=== PATIENT | female | born 1970 | race Caucasian/White ===

== ENCOUNTER 2017-07-18 18:20 | Observation (INO) ==
[2017-07-18] MEDS ORDERED: ASPIRIN 325 MG TABLET PO STA (19:19)
[2017-07-18] MEDS ORDERED: ALUM/MAG/SIMETH/LIDO VISC 1:1 30 ML BOTTLE PO STA (19:19)
[2017-07-18] MEDS ORDERED: NITROGLYCERIN 2% OINT 1 INCH/GM PACK TOP STA (19:19)
[2017-07-18] MEDS ORDERED: ONDANSETRON 4 MG/2 ML VIAL IV STA (19:19)
[2017-07-18] MEDS ORDERED: METOPROLOL TARTRATE 5 MG/5 ML VIAL IV STA (19:19)
[2017-07-18] MEDS ORDERED: MORPHINE 2 MG/1 ML SYRINGE IV STA (19:19)
[2017-07-18] MEDS ORDERED: SODIUM CHLORIDE 0.9% 500 ML IV STA (19:19)
--- NOTE | 2017-07-18 19:21 | Emergency Department Note ---
Lizzy Holbrook Gwan, am scribing for, and in the presence of, Ever Joyce MD 19 :17. Maria Del Carmen Holbrook Charles R, MD, personally performed the services described in this documentation, ascribed by Mark Ball in my presence, and it is both accurate and complete . Arrival - Arrival Chief Complaint: Chest Pain Stated Complaint: chest tight, heart racing ED Nursing Triage Note: c/o mid-sternal chest pain radiating into left shoulder blade onset last pm. Describes as tightness. +palpitations. +shortness of breath. +nausea. Mode of Arrival: Ambulatory Limitations: No Limitations Source: Patient, Old Records Reviewed, RN Notes Reviewed Time Seen by Provider: 07/18/17 18:58 - History of Present Illness HPI Narrative: Patient is a 46 y/o female who presents to the ED with a c/o mid-sternal chest pain with an onset yesterday. Patient describes her pain as a tightness that radiates to her left shoulder blade. She continued to note that she has also had SOB and nausea. Patient stated that her discomfort progressively got worse during the day prompting her visit to the ED for further evaluation. 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 She then said that she has no been compliant medication due to no health insurance. Patient denies having a heart cath or following up with a Hall Cleaner. During exam, patient appeared anxious. No other problems/ complaints reported in ED. Onset (ago): day(s) Consistency: constant Severity: moderate Date of Last Menstrual Period: hyst Allergies/Adverse Reactions: Allergies Allergy/AdvReac Type Severity Reaction Status Date / Time No Known Allergies Allergy Verified 07/18/17 18:28 Home Medications: Home Medications Medication Instructions Recorded Confirmed Type Baclofen Tab [Lioresal] 10 mg PO BID 07/18/17 07/18/17 History Gabapentin Cap/Tab [Neurontin 300 mg PO BID 07/18/17 07/18/17 History Cap/Tab] Review of System - Review of System 12 point system: reviewed and no additional remarkable complaints except as stated - Review of System Respiratory: Present: as per HPI, other (shortness of ) Cardiovascular: Present: as per HPI, chest pain, palpitations Medical,Surgical,& Family Hx - Medical History Cardio: History of: CA Hematology: History of: Anemia - Surgical History Reproductive Surgeries: Surgical HX of;: Hysterectomy - Social History Smoking Status: Never smoker Frequency of Alcohol Use: None Type of Drug Use: None Exam Vital Signs: Vital Signs Temperature 97.7 F 07/18/17 18:22 Pulse Rate 135 H 07/18/17 19:00 Respiratory Rate 22 07/18/17 19:00 Blood Pressure 150/90 07/18/17 19:00 O2 Sat by Pulse Oximetry 99 07/18/17 19:00 - General General appearance: alert, anxious - Head Head exam: Present: atraumatic, normocephalic - Eye Eye exam: Present: PERRL, EOMI, other (Patient had pale conjunctiva.) - ENT ENT exam: Present: normal oropharynx, mucous membranes moist, TM's normal bilaterally, normal external ear exam - Neck Neck exam: Present: full ROM, trachea midline. Absent: tenderness - Chest Chest inspection: Present: symmetric chest wall rise. Absent: tenderness - Respiratory Respiratory exam: Present: normal lung sounds bilaterally. Absent: respiratory distress - Cardiovascular Cardiovascular exam: Present: normal rhythm, tachycardia - Abdominal Exam Abdominal exam: Present: soft, normal bowel sounds. Absent: distention, tenderness - Extremities Exam Extremities exam: Present: full ROM. Absent: tenderness - Back Exam Back exam: Present: full ROM. Absent: tenderness - Neurological Exam Neurological exam: Present: alert, oriented X3, CN II-XII intact. Absent: motor sensory deficit - Psychiatric Psychiatric exam: Present: normal affect, normal mood - Skin Skin exam: Present: warm, dry, intact, normal color Course - Consultations Consultation #1: Hospitalist will admit patient Time: 21:06 Results - Labs CBC & BMP: 07/18/17 20:15 07/18/17 20:15 Lab Results: I have reviewed the patients labs Labs: Laboratory Tests 07/18/17 07/18/17 20:15 20:15 WBC 10.6 RBC 5.25 Hgb 15.8 Hct 45.1 MCV 85.9 L Plt Count 303 Neut % (Auto) 82.5 H Lymph % (Auto) 11.2 L Neut # (Auto) 8.8 H Lymph # (Auto) 1.2 L INR 1.1 PT Patient/Control Mix 11.1 D-Dimer, Quantitative <= 0.5 - Diagnostic Findings Procedure: Chest x-ray: report reviewed by me (No abnormality seen. ) Disposition Clinical Impression: Chest pain Case discussed with: patient Disposition: Still a Patient Condition: Stable Time of Disposition: 21:06
--- NOTE | 2017-07-18 19:22 | EKG Report ---
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
[2017-07-18] MEDS ORDERED: ONDANSETRON 4 MG/2 ML VIAL ONE (19:26)
[2017-07-18] MEDS ORDERED: NITROGLYCERIN 2% OINT 1 INCH/GM PACK TOP ONE (19:26)
[2017-07-18] MEDS ORDERED: MORPHINE 2 MG/1 ML SYRINGE ONE (19:27)
[2017-07-18] MEDS ORDERED: ASPIRIN 325 MG TABLET ONE (19:27)
[2017-07-18] MEDS ORDERED: METOPROLOL TARTRATE 5 MG/5 ML VIAL IV ONE (19:27)
[2017-07-18] MEDS ORDERED: ALUM/MAG/SIMETH/LIDO VISC 1:1 30 ML BOTTLE PO ONE (19:27)
--- NOTE | 2017-07-18 19:43 | XRay Report ---
Single view the chest. Indication: Chest pain. The heart and mediastinal contours are unremarkable. The pulmonary vasculature is normal. There is no consolidation, pneumothorax, or pleural effusion. The osseous structures are unremarkable. Impression: No abnormality is seen. PROCEDURE INTERPRETED AT [facility] DEPARTMENT OF RADIOLOGY Final Report Signed by: Dr. Nuris Nunez
[2017-07-18 20:31] LABS: Basophils # 0.1 10*3/uL (0.0-0.2); Basophils % 0.5 % (0.0-0.8); Eosinophils % 0.1 % (0.00-10.9); Hematocrit 45.1 VOL% (35.7-47.0); Hemoglobin 15.8 GM/DL (12.0-16.0); Immature Granulocytes % 0.4 %; Immature Granulocytes Absolute 0.04 #; Lymphocytes # 1.2 10*3/uL (1.4-4.0); Lymphocytes % 11.2 % (21.3-54.2); Mean Corpuscular Hemoglobin 30 PG (27-34); Mean Corpuscular Volume 85.9 FL (87-102); Mean Platelet Volume 10.3 FL (9.6-12.0); Monocytes # 0.6 10*3/uL (0.11-0.8); Monocytes % 5.3 % (1.7-12.7); Neutrophils # 8.8 10*3/uL (1.4-7.4); Neutrophils % 82.5 % (38.7-73.9); Platelet Count 303 T/CUMM (130-400); Red Blood Count 5.25 MC/CUMM (3.8-5.5); Red Cell Distribution Width 13.9 % (9.3-17.3); White Blood Count 10.6 T/CUMM (4-12)
[2017-07-18 20:42] LABS: INR 1.1; PT Patient Result 11.1 SECS
[2017-07-18 20:51] LABS: Albumin 4.2 G/DL (3.4-5.0); Bilirubin,Total 0.8 MG/DL (0.2-1.0); Calcium 9.3 MG/DL (8.5-10.1); Osmolality,Calculated 278.5 MOS/KG (273-304); Potassium 3.3 MMOL/L (3.5-5.1); Total Protein 7.6 G/DL (6.4-8.3)
[2017-07-18] MEDS ORDERED: POTASSIUM CHLORIDE 20 MEQ TABLET PO STA (21:07)
[2017-07-18] MEDS ORDERED: ZALEPLON 5 MG CAPSULE PO PRN (21:37)
[2017-07-18] MEDS ORDERED: ONDANSETRON 4 MG/2 ML VIAL IV PRN (21:37)
--- NOTE | 2017-07-18 21:50 | Hospitalist History & Physical ---
<Kallie Dodge - Last Filed: 07/18/17 22:09> Assessment and Plan - Time spent with patient Time spent with patient: Greater than 30 minutes (1) Chest pain Status: Acute Assessment and plan: Admit to hospitalist services. EKG showed sinus tachycardia; follow serial EKGs. Troponin negative; follow serial troponins. D-dimer was negative, however obtain CT chest with PE protocol for good measure. Restart Lopressor 25 mg p.o. twice daily and lisinopril 2.5 mg p.o. daily. Normal saline 500 mL bolus given in ED. Continue hydration with normal saline at 125 mL/h. O2 per unit protocol. Obtain records from [facility] in [place], [place]. CBC, BMP, TSH/free T4, A1c, and magnesium in a.m. Current Visit: Yes (2) Lactic acidosis Status: Acute Assessment and plan: Lactic acid was 3.4. Hydrate with NS at 125 ml/hr. Repeat lactic acid in 4 hours. Current Visit: Yes (3) Tachycardia Status: Acute Assessment and plan: Initially, HR was 119-135 in the ED. It returned to the 70s following IV Lopressor administration. Likely Reflex Tachycardia following abrupt cessation of Lopressor. Restart Lopressor and Lisinopril as above. 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 Repeat BMP in am. Current Visit: Yes (5) HTN (hypertension) Status: Chronic Assessment and plan: Restart Lopressor and Lisinopril as above. Monitor. Current Visit: Yes Qualifiers: Hypertension type: essential hypertension Qualified Code(s): I10 - Essential (primary) hypertension (6) DVT prophylaxis Status: Acute Assessment and plan: Lovenox 40 mg SQ daily. Current Visit: Yes History of Present Illness History of present illness: Ms. Franco is a 46 year old female with a past medical history of hypertension, severe anemia, CT, and surgical history of hysterectomy who presented to the ED today with complaints of midsternal chest tightness, shortness of breath, and tachycardia 24 hours. She reports that about 1 year ago, she had an CT that was reportedly related to severe anemia. At that time, she was placed on Lopressor and Lisinopril, and hysterectomy was performed. She was treated at [facility] in [place], [place]. However, she currently is uninsured and did not see a PCP to get a refill on those prescriptions when they ran out in March. She has been without these medications since then and has had episodes of tachycardia every few weeks since stopping the medications. These episodes are usually relieved by rest, however this episode did not stop after rest. In the ED, her EKG, Troponin and D-dimer were negative. However, her Lactic acid was 3.4. Currently, she is lying in bed with relieved symptoms following Lopressor administration. Hospitalist services were consulted, and the patient will be admitted for further evaluation and treatment. Home medications were reviewed and reconciled. This patient is full code. Home Medications Medication Instructions Recorded Confirmed Type Baclofen Tab [Lioresal] 10 mg PO BID 07/18/17 07/18/17 History Gabapentin Cap/Tab [Neurontin 300 mg PO BID 07/18/17 07/18/17 History Cap/Tab] Allergies Allergy/AdvReac Type Severity Reaction Status Date / Time No Known Allergies Allergy Verified 07/18/17 18:28 Medical,Surgical,& Family Hx - Medical History Cardio: History of: Hypertension, CT Hematology: History of: Anemia - Surgical History Reproductive Surgeries: Surgical HX of;: Hysterectomy - Family History Family History: Reports;: Family Hypertension - Social History Smoking Status: Never smoker Have you smoked in the last 12 months: No Frequency of Alcohol Use: None Type of Drug Use: None Marital Status: Lives With:: Alone Functional capacity: independent ambulation 12 point system: reviewed and no additional remarkable complaints except as stated - Constitutional Constitutional: Absent: chills, fever(s), lethargy, malaise, weakness - EENT Eyes: Absent: blurry vision, diplopia, loss of vision Ears: Absent: decreased hearing, ear discharge, ear pain Nose, mouth and throat: Absent: headache(s), nasal congestion, sore throat - Cardiovascular Cardiovascular: Present: chest pain at rest, diaphoresis, dyspnea, palpitations. Absent: edema, orthopnea - Respiratory Respiratory: Present: dyspnea. Absent: cough, wheezing - Gastrointestinal Gastrointestinal: Absent: abdominal pain, constipation, diarrhea, nausea, vomiting - Genitourinary Genitourinary: Absent: flank pain, urinary frequency - Musculoskeletal Musculoskeletal: Absent: arthralgias, back pain, joint swelling, muscle weakness , myalgias - Neurological Neurological: Absent: confusion, dizziness, numbness, paresthesias, syncope - Psychiatric Psychiatric: Absent: anxiety, depression - Endocrine Endocrine: Absent: cold intolerance, polydipsia, polyphagia, polyuria - Hematologic/Lymphatic Hematologic/Lymphatic: Absent: easy bleeding, easy bruising Exam - Constitutional Vitals: Period Temp Pulse Resp BP Sys/Ronquillo Pulse Ox Last 24 Hr 97.7 F 119-135 20-22 144-150/90-118 99-100 Exam: Constitutional System: Afebrile. Awake, alert, and oriented 3. No distress. No tremulousness. Head: Normocephalic, atraumatic. Ears, Nose and Throat System: No pain or tenderness. No epistaxis or discharge Eyes System: Pupils equal, round, and reactive. Extraocular muscles intact. Neck: Supple, without adenopathy, No jugular venous distention. No thyromegaly, neck mass, or prior surgery apparent. Respiratory System: Chest clear to auscultation. Cardiovascular System: Heart with regular rate and rhythm. No murmur. GI System: Abdomen soft, nontender. Normo active bowel sounds present. Musculoskeletal System: limbs with no pedal edema. Full distal pulses. Normal capillary refill. Neurological System: No discernable sensory deficit. No aphasia Psychiatric System: Conversation is rational Results - Labs CBC & BMP: 07/18/17 20:15 07/18/17 20:15 Lab Results: I have reviewed the past 24 hour labs - Diagnostic Findings Procedure: Chest x-ray: report reviewed by me ("No abnormality is seen.") <Melissa Harmon - Last Filed: 07/18/17 22:55> Assessment and Plan (1) Tachycardia Status: Acute Current Visit: Yes (2) Lactic acidosis Status: Acute Current Visit: Yes (3) HTN (hypertension) Status: Chronic Current Visit: Yes Qualifiers: Hypertension type: essential hypertension Qualified Code(s): I10 - Essential (primary) hypertension (4) Chest pain Status: Acute Current Visit: Yes History of Present Illness Chief complaint: chest pain, tachycardia History of present illness: I have personally seen and examined this patient today. I agree with the below note as prepared by the advanced practice provider. I agree with the assessment and plan. Patient seen and examined with Kallie Dodge NP in emergency department. She responded well to 1 dose of Lopressor in the emergency department. Because of her lactic acidosis is unclear at this time. Will hydrate with normal saline and repeat lactic acid in 4 hours. She could have an element of hypoperfusion secondary to high cardiac output and the demand of her elevated heart rate of 140s-150s. Her tachycardia appears to be a sinus tachycardia without other arrhythmia. She was previously on Lopressor and has been noncompliant with her medical therapy over the last 2 months. She reports similar symptoms over the past 2 months that subsided with rest. At the time of my evaluation, the patient was feeling much better. Her heart rate has come down into the 70s and 80s. Further recommendations will depend on her response to therapy. CT of the chest with IV contrast is pending and repeat lactic acid will be followed up. Medical,Surgical,& Family Hx - Medical History Cardio: History of: CT Hematology: History of: Anemia - Surgical History Reproductive Surgeries: Surgical HX of;: Hysterectomy - Social History Smoking Status: Never smoker Frequency of Alcohol Use: None Type of Drug Use: None Exam - Constitutional Vitals: Period Temp Pulse Resp BP Sys/Ronquillo Pulse Ox Last 24 Hr 97.7 F 119-135 20-22 144-150/90-118 99-100 Results - Labs CBC & BMP: 07/18/17 20:15 07/18/17 20:15
[2017-07-18] MEDS: ENOXAPARIN 40 MG/0.4 ML SYRINGE SUBCUT SCH (23:50)
[2017-07-18] MEDS: SODIUM CHLORIDE 0.9% 1,000 ML IV SCH (23:52)
[2017-07-18] MEDS: METOPROLOL TARTRATE 25 MG TABLET PO SCH (23:52)
[2017-07-19 01:42] LABS: Troponin I Only < 0.015 NG/ML (0.00-0.045)
--- NOTE | 2017-07-19 04:42 | EKG Report ---
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
[2017-07-19 04:50] LABS: Basophils # 0.1 10*3/uL (0.0-0.2); Basophils % 0.6 % (0.0-0.8); Eosinophils # 0.1 10*3/uL (0.0-0.87); Eosinophils % 0.8 % (0.00-10.9); Hematocrit 42.6 VOL% (35.7-47.0); Hemoglobin 14.9 GM/DL (12.0-16.0); Immature Granulocytes % 0.2 %; Immature Granulocytes Absolute 0.02 #; Lymphocytes # 2.7 10*3/uL (1.4-4.0); Lymphocytes % 29.9 % (21.3-54.2); Mean Corpuscular Hemoglobin 30 PG (27-34); Mean Corpuscular Volume 85.9 FL (87-102); Mean Platelet Volume 10.4 FL (9.6-12.0); Monocytes # 0.6 10*3/uL (0.11-0.8); Monocytes % 7.2 % (1.7-12.7); Neutrophils # 5.5 10*3/uL (1.4-7.4); Neutrophils % 61.3 % (38.7-73.9); Platelet Count 286 T/CUMM (130-400); Red Blood Count 4.96 MC/CUMM (3.8-5.5); White Blood Count 8.9 T/CUMM (4-12)
[2017-07-19 05:29] LABS: Troponin I Only < 0.015 NG/ML (0.00-0.045)
[2017-07-19 05:31] LABS: Calcium 9.1 MG/DL (8.5-10.1); Magnesium 2.3 MG/DL (1.8-2.4); Osmolality,Calculated 280.1 MOS/KG (273-304); Potassium 5.3 MMOL/L (3.5-5.1); Risk Ratio 2.58; Thyroid Stimulating Hormone 0.642 uIU/ml (0.358-3.74); VLDL CHOLESTEROL 9.4 MG/DL
--- NOTE | 2017-07-19 07:19 | CT Report ---
CT chest pulmonary embolism Indication: Chest pain, shortness of breath Comparison: None available Technique: Axial CT imaging of the chest is performed with intravenous contrast. Contrast dose is 80 cc of Omnipaque 350. Findings: No thrombus or other abnormality is identified in the pulmonary arteries or veins. The pulmonary vessel caliber is within normal limits. The heart and great vessels appear within normal limits. Calcified granuloma seen in the right lower lobe and in the right upper lobe calcified lymph nodes are present in the mediastinum. Right middle lobe has a subpleural area of increased density that measures 2 mm in size. Calcified granulomas are present in the spleen. Remaining pulmonary parenchyma shows no evidence of airspace disease or abnormal density. No effusion or pneumothorax is present. Impression: No evidence of pulmonary thromboembolism or other acute process demonstrated. Calcified granulomas. Some pleural 2 mm density in the right middle lobe could be a noncalcified granuloma. This CT exam was performed using one or more the following dose reduction techniques: Automated exposure control, adjustment of the MA and/or KV according to patient size, or use of iterative reconstruction technique. PROCEDURE INTERPRETED AT [facility] DEPARTMENT OF RADIOLOGY Final Report Signed by: Dr. Rd Zacarias
--- NOTE | 2017-07-19 08:51 | EKG Report ---
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
[2017-07-19] MEDS: SODIUM CHLORIDE 0.9% 1,000 ML IV SCH ×2 (08:58→17:28)
[2017-07-19] MEDS: BACLOFEN 10 MG TABLET PO SCH ×2 (08:58→20:35)
[2017-07-19] MEDS: METOPROLOL TARTRATE 25 MG TABLET PO SCH ×2 (08:59→20:36)
[2017-07-19] MEDS: GABAPENTIN 300 MG CAPSULE PO SCH ×2 (08:59→20:36)
[2017-07-19] MEDS: LISINOPRIL 2.5 MG TABLET PO SCH (08:59)
[2017-07-19] MEDS: PANTOPRAZOLE 40 MG TABLET PO SCH (08:59)
[2017-07-19 10:43] LABS: Troponin I Only < 0.015 NG/ML (0.00-0.045)
--- NOTE | 2017-07-19 11:20 | Hospitalist Progress Note ---
Assessment and Plan (1) Tachycardia Status: Acute Assessment and plan: Features suggest hyperadrenergic state with underlying sinus arrhythmia. Cardiac ischemia has been excluded with high sensitivity with a combination of cardiac troponin I negativity and prolonged symptoms status. Current Visit: Yes Hospitalist: Subjective Interval history: 46-year-old female who due to heavy menses had developed a severe anemia undergoing in [place] IV iron replacement therapy. Apparently her anemia progressed with exercise associated symptoms of shortness of breath and rapid heart beating. She sustained a syncopal episode and was told she had "an WI" although her description suggests more a cardiac biomarker based diagnosis. She does report what sounds like a noninvasive evaluation. Shortly thereafter she underwent a hysterectomy. Postoperatively she developed some pelvic pain and was placed on Baclofen and gabapentin. Due to financial problems the patient was unable to take her Lopressor that had been prescribed since late March or early April and she is reduced the baclofen and gabapentin until they also finally ran out. She presented the emergency room with complaints of over 24 hours of the sensation of her heart beating rapidly with an unpleasant feeling in her chest associated with shortness of breath. Her cardiac biomarkers here are negative and her EKG shows a sinus arrhythmia. Yesterday evening's thyroid panel was normal and a CT angiogram was also unremarkable. Her initial laboratory did show mild hypokalemia however I suspect this was probably adrenergic remediated. Her vital signs overnight were stable and she has been maintained in sinus rhythm. Exam - Constitutional Vitals: Period Temp Pulse Resp BP Sys/Ronquillo Pulse Ox Last 24 Hr 97.0 F-97.7 F 66-135 16-22 110-150/71-118 95-100 General appearance: over weight - Respiratory Respiratory exam: Present: clear to auscultation bilaterally. Absent: rales, rhonchi, wheezes - Cardiovascular Cardiovascular exam: Present: regular rate and rhythm - GI/Abdominal GI/Abdominal exam: Present: normal bowel sounds. Absent: organomegaly, tenderness - Extremities Exam Extremities exam: Absent: edema - Neurological Exam Neurological exam: Present: alert, oriented X3 Results - Labs CBC & BMP: 07/19/17 04:07 07/19/17 04:07 Labs: TSH 0.64 free T4 1.0 Serial cardiac troponin I negative - Impressions Sinus rhythm with sinus arrhythmia
[2017-07-19] MEDS: ACETAMINOPHEN 325 MG TABLET PO PRN ×2 (13:43→17:58)
[2017-07-19] MEDS: ENOXAPARIN 40 MG/0.4 ML SYRINGE SUBCUT SCH (20:35)
[2017-07-20] MEDS: SODIUM CHLORIDE 0.9% 1,000 ML IV SCH ×3 (00:44→14:08)
--- NOTE | 2017-07-20 07:36 | Discharge Summary ---
Hospital Course - Hospital Course Hospital Course: 46-year-old female who presented with a sensation of palpitation with documentation of sinus tachycardia and sinus arrhythmia. Patient had similar episodes in the past attributed to a profound iron deficiency anemia which has been subsequently resolved with hysterectomy and iron replacement therapy. She had been placed on beta-blockers last year for symptomatic relief but had discontinued these earlier in the summer. The patient serial cardiac biomarkers were negative CT angiogram showed no evidence of pulmonary embolus and her thyroid panel was normal. Patient demonstrated mild initial hypokalemia this corrected without specific treatment suggesting an adrenergic shift as a mechanism. She was observed on monitoring manager for 24 hours. She demonstrated intermittent sinus tachycardia. Maximum rates were associated with gradual onset and offset mitigating against a sinoatrial node reentrant tachycardia. Beta blockade was resumed during the hospital stay and will be continued as an outpatient. Diagnosis - Discharge Diagnosis (1) Tachycardia Status: Acute Discharge Plan - Discharge Data Disposition: Disch To Home/Self Care Condition at Discharge: Stable Discharge Diet: advance to your usual diet Activity: resume usual activities as tolerated - Discharge Medications New Metoprolol Tartrate Tab [Lopressor Tab] 25 mg PO BID #60 tablet Discontinued Gabapentin Cap/Tab [Neurontin Cap/Tab] 300 mg PO BID Baclofen Tab [Lioresal] 10 mg PO BID - Follow Up or Referral - Forms/Instructions Exam - Constitutional Vitals: Period Temp Pulse Resp BP Sys/Ronquillo Pulse Ox Last 24 Hr 97.2 F-97.9 F 69-85 18-20 101-126/55-78 95-99 Discharge Results Procedures and tests throughout hospitalization: Pending Orders 07/18/17 19:19 Urinalysis Stat 07/19/17 03:29 Drug Screen, Urine Routine Labs on day of discharge: Labs from last 24 hours 07/19/17 09:19 Total Creatine Kinase 41 CK-MB (CK-2) < 1.0 Troponin I < 0.015 DS: Provider Date of admission: 07/18/17 21:37 Primary care physician: . No PCP Attending physician on admission: Melissa Harmon MD Discharging clinician: Alberto Soto MD Expected date of discharge: 07/20/17
[2017-07-20] MEDS: LISINOPRIL 2.5 MG TABLET PO SCH (08:37)
[2017-07-20] MEDS: METOPROLOL TARTRATE 25 MG TABLET PO SCH (08:37)
[2017-07-20] MEDS: BACLOFEN 10 MG TABLET PO SCH (08:37)
[2017-07-20] MEDS: PANTOPRAZOLE 40 MG TABLET PO SCH (08:37)
[2017-07-20] MEDS: GABAPENTIN 300 MG CAPSULE PO SCH (08:37)
[2017-07-20] MEDS: ACETAMINOPHEN 325 MG TABLET PO PRN (11:55)
[2017-07-20 12:17] VITALS: BP 109/76
== END 2017-07-20 14:30 | disposition home or self-care (01) ==
LOC: N.EDINP 18:20 → N.ED 18:20 → SUATTDRO 21:37 → N.TELES 22:30
PROVIDERS: ADMIT Family Medicine; ATTEND Internal Medicine Cardiovascular Disease